=== PATIENT | female | born 1950 | race Caucasian/White ===

== ENCOUNTER → 2018-02-16 17:43 | Outpatient (CLI) | payer MEDICARE, SELFPAY ==
[2016-08-03 16:37] VITALS: BMI 37.4
== END ==
PROVIDERS: Visit Provider Otolaryngology Otolaryngology/Facial Plastic Surgery
DX: H92.10 Otorrhea, unspecified ear (principal)
CPT/HCPCS: 87070; 87075; 87077; 87186; 87205